=== PATIENT | female | born 1935 | race African-American/Black ===

== ENCOUNTER 2017-06-02 18:34 | Emergency (ER) | payer OTHER, MEDICAID ==
[~2017-06-02] VITALS: Ht 167.6 cm; Wt 120.0 kg
[~2017-06-02 18:34] MED LIST: CALCIUM CHLORIDE 1GM/10ML SYR IV ONE; DOPAMINE 400MG IN DEXT 5% 250ML PREMIX IV ONE; EPINEPHRINE 0.1MG/ML (1:10,000) 10ML SYR ONE; ETOMIDATE 2MG/ML 10ML VIAL IV ONE; MAGNESIUM SULFATE 4G IN WATER 100ML PREMIX IV ONE; SODIUM BICARBONATE 7.5% 0.9 MEQ/ML 50ML SYR IV ONE; VECURONIUM BROMIDE 10 MG/VIAL IV ONE
[2017-06-02 18:41] VITALS: BP 86/50
[2017-06-02] MEDS ORDERED: EPINEPHRINE 0.1MG/ML (1:10,000) 10ML SYR ONE ×2 (19:14→19:31)
[2017-06-02] MEDS ORDERED: NOREPINEPHRINE 4 MG in DEXT 5% WATER 246 ML IV ONE ×4 (19:30)
== END 2017-06-02 19:31 | disposition expired ==
LOC: ER 18:56
DX: I46.9 Cardiac arrest, cause unspecified (principal); N18.6 End stage renal disease; E11.22 Type 2 diabetes mellitus with diabetic chronic kidney disease; Z99.2 Dependence on renal dialysis
CPT/HCPCS: 31500; 86703; 99291; J0171; J1265; J3475; J3490; J7060